=== PATIENT | female | born 1990 | race Caucasian/White ===

== ENCOUNTER 2018-05-05 10:03 | Emergency (ER) | payer MEDICAID ==
[~2018-05-05] VITALS: Ht 172.7 cm; Wt 104.0 kg
[~2018-05-05 10:03] MED LIST: PRENATAL VITAMINS
[2018-05-05] MEDS ORDERED: KETOROLAC 60MG/2ML VIAL IM ONE (12:30)
[2018-05-05] MEDS ORDERED: MORPHINE SULFATE 10 MG/ML CPJ IM ONE (12:30)
[2018-05-05 14:00] VITALS: BP 120/88
== END 2018-05-05 14:02 | disposition home or self-care (01) ==
LOC: ER 10:50
DX: M62.830 Muscle spasm of back (principal)
CPT/HCPCS: 96372; 99283; J1885; J2270